=== PATIENT | female | born 1990 | race African-American/Black ===

== ENCOUNTER 2016-04-27 05:34 | Inpatient (IN) | payer OTHER ==
[~2016-04-27] VITALS: Ht 165.1 cm; Wt 72.6 kg
[2016-04-27] VITALS (63 sets, daily range): BP systolic 95–146; BP diastolic 48–85; PULSE 76–163; RESP 18–20; TEMP 98.5–99.2
[2016-04-27] MEDS ORDERED: OXYTOCIN 30 UNITS-500ML PREMIX 500 ML ONE (05:49)
[2016-04-27] MEDS ORDERED: CALNTAB PO (05:59)
[2016-04-27] MEDS ORDERED: LIDOCAINE HCL 1% 50 ML VIAL INFIL PRN (06:00)
[2016-04-27] MEDS ORDERED: MINERAL OIL 10 ML VIAL TOP PRN (06:00)
[2016-04-27] MEDS ORDERED: OXYTOCIN 30 UNITS 500ML PREMIX IV ONE (06:00)
[2016-04-27] MEDS ORDERED: OXYTOCIN 30 UNITS/NS 500ML PREMIX IV SCH (06:00)
[2016-04-27] MEDS ORDERED: NS 500 ML BOLUS IV PRN (06:00)
[2016-04-27] MEDS ORDERED: LACTATED RINGER'S 1000 ML BOLUS IV PRN (06:00)
[2016-04-27] MEDS ORDERED: LACTATED RINGER'S 1000 ML IV SCH ×2 (06:00→21:45)
[2016-04-27] MEDS ORDERED: LIDOCAINE HCL 1% 50 ML VIAL I-DERMAL PRN (06:00)
[2016-04-27] MEDS ORDERED: ONDANSETRON HCL 4 MG/2 ML VIAL IV PRN (06:00)
[2016-04-27] MEDS ORDERED: NS 1000 ML IV PRN (06:00)
[2016-04-27] MEDS ORDERED: CITRIC ACID-SODIUM CITRATE LIQ 30 ML UDC PO SCH ×2 (06:00→21:45)
[2016-04-27 06:31] LABS: AUTOMATED NEUTROPHIL # 4.4 TH/MM3 (1.8-7.7); BASOPHIL % 0.3 % (0.0-2.0); EOSINOPHIL # 0.1 TH/MM3 (0-0.4); EOSINOPHIL % 1.5 % (0.0-4.0); LYMPH % 29.8 % (9.0-44.0); LYMPHOCYTE # 2.2 TH/MM3 (1.0-4.8); MEAN CELL VOLUME 75.8 FL (80.0-100.0); MEAN CORPUSCULAR HEMOGLOBIN 24.7 PG (27.0-34.0); MEAN CORPUSCULAR HGB CONC 32.6 % (32.0-36.0); NEUT % 61.4 % (16.0-70.0); PLATELET COUNT 200 TH/MM3 (150-450); RED BLOOD COUNT 4.36 MIL/MM3 (4.00-5.30); RED CELL DISTRIBUTION WIDTH 18.9 % (11.6-17.2); WHITE BLOOD COUNT 7.2 TH/MM3 (4.0-11.0)
[2016-04-27 06:33] LABS: HEMO FLAGS AUTO DIFF
[2016-04-27 06:53] LABS: BACTERIA, URINE RARE /hpf; BLOOD, URINE MOD (NEG); GLUCOSE,URINE NEG (NEG); HYALINE CAST, URINE 1 /lpf (RARE); KETONE, URINE NEG (NEG); NITRITE,URINE NEG (NEG); PH, URINE 6.5 (5.0-8.5); SQUAMOUS EPITHELIAL CELL URINE 2 /hpf (0-5); URINE COLOR LIGHT-YELLOW (YELLW/STRAW)
[2016-04-27 06:59] LABS: SCAN/DIFF AUTO DIFF CONFIRMED
[2016-04-27 07:13] LABS: COMMENT (UR) CULT NOT INDICATED; CULTURE IF INDICATED CULT NOT INDICATED
[2016-04-27] MEDS ORDERED: fentaNYL 2MCG-BUPIV 0.125% INJ 100 ML ONE ×2 (12:52→19:35)
[2016-04-27] MEDS ORDERED: ePHEDrine/NS 25 MG/5 ML SYR ONE (12:53)
--- NOTE | 2016-04-27 20:40 | PD.LABORPN ---
Subjective Subjective Pt comfortable with epidural Objective Vital Signs Vital Signs Date Time Temp Pulse Resp B/P Pulse Ox O2 Delivery O2 Flow Rate FiO2 04/27/16 19:40 99 115/65 04/27/16 19:20 97 116/65 04/27/16 19:15 18 04/27/16 19:00 96 106/48 04/27/16 18:45 20 04/27/16 18:40 92 102/56 04/27/16 18:20 94 103/48 04/27/16 18:07 20 04/27/16 18:00 90 04/27/16 18:00 96/48 04/27/16 17:45 99.2 20 04/27/16 17:40 106 108/63 04/27/16 17:20 92 109/62 04/27/16 17:00 88 109/59 04/27/16 16:45 20 04/27/16 16:40 77 95/55 04/27/16 16:20 90 99/48 04/27/16 16:13 20 04/27/16 16:00 91 104/56 04/27/16 15:45 20 04/27/16 15:40 98 110/64 04/27/16 15:20 94 108/59 04/27/16 15:01 20 04/27/16 15:00 163 101/70 04/27/16 14:44 20 04/27/16 14:40 95 112/66 04/27/16 14:20 97 110/70 04/27/16 14:15 20 04/27/16 14:10 90 04/27/16 14:05 102 04/27/16 14:00 95 04/27/16 14:00 95 95/53 04/27/16 13:40 86 97/49 04/27/16 13:40 96 04/27/16 13:35 94 04/27/16 13:30 95 04/27/16 13:30 98.8 20 04/27/16 13:25 94 04/27/16 13:20 97 04/27/16 13:20 89 122/72 04/27/16 13:15 85 104/68 04/27/16 13:15 83 04/27/16 12:45 20 Objective Pelvic Exam: Cervix: Dilatation: 8 Effacement: 80 Station: 0 Presentation: [-] Membranens: ruptured clear fluid at 8 am Uterine Contractions: q 3 min at 50 mmhg FHT's: Category: 1 Baseline: 140's Reactive: yes Variability: [-] Decels: [-] Assessment/Plan Assessment and Plan 25 yo BF at 40 wks 2 dys for induction with arrest of labor at 8 cm since 2 pm...discussed diagnosis with pt and and rec for delivery by c/ s...all questions answered..services notified..will have to wait at least 1 hr due to emergent c/s just starting on labor and delivery. Aline Last MD Apr 27, 2016 20:40
[2016-04-27] MEDS ORDERED: ONDANSETRON HCL 4 MG/2 ML VIAL IV PUSH PRN (21:15)
[2016-04-27] MEDS ORDERED: KETOROLAC TROMETHAMINE 60 MG/2 ML (IM) VIAL IM PRN ×2 (21:15)
[2016-04-27] MEDS ORDERED: SIMETHICONE 80 MG CHEWABLE TAB PO PRN (21:15)
[2016-04-27] MEDS ORDERED: oxyCODONE/ACETAMINOPHEN 5 MG/325 MG TAB PO PRN (21:15)
[2016-04-27] MEDS ORDERED: SODIUM CHLORIDE 0.9% FLUSH 5 ML FLUSH IV PRN (21:15)
[2016-04-27] MEDS ORDERED: OXYTOCIN 30 UNITS-500ML PREMIX 500 ML IV ONE (21:15)
[2016-04-27] MEDS ORDERED: MORPHINE SULFATE PF 5 MG/10 ML VIAL ONE (21:37)
[2016-04-27] MEDS ORDERED: ONDANSETRON HCL 4 MG/2 ML VIAL ONE (21:37)
[2016-04-27] MEDS ORDERED: OXYTOCIN 10 UNIT/ML AMP ONE (21:37)
[2016-04-27] MEDS ORDERED: ceFAZolin 1,000 MG/NS 100 ML IV ONE ×2 (21:45)
[2016-04-27] MEDS ORDERED: LACTATED RINGER'S 1000 ML IV ONE (21:45)
[2016-04-28] VITALS: BP 130/77; PULSE 95; RESP 18
[2016-04-28] MEDS ORDERED: LACTATED RINGER'S 1000 ML INJ 1,000 ML IV SCH (02:09)
[2016-04-28 02:30] VITALS: BP 125/58; PULSE 108; RESP 20; TEMP 100.1
[2016-04-28 03:30] VITALS: TEMP 98
[2016-04-28 06:08] LABS: BASOPHIL % 0.3 % (0.0-2.0); HEMATOCRIT 28.2 % (35.0-46.0); LYMPH % 13.9 % (9.0-44.0); LYMPHOCYTE # 1.7 TH/MM3 (1.0-4.8); MEAN CELL VOLUME 76.2 FL (80.0-100.0); MEAN CORPUSCULAR HEMOGLOBIN 24.5 PG (27.0-34.0); MEAN CORPUSCULAR HGB CONC 32.2 % (32.0-36.0); MONO % 5.7 % (0.0-8.0); NEUT % 80.1 % (16.0-70.0); PLATELET COUNT 172 TH/MM3 (150-450); RED BLOOD COUNT 3.71 MIL/MM3 (4.00-5.30); RED CELL DISTRIBUTION WIDTH 18.7 % (11.6-17.2); WHITE BLOOD COUNT 12.5 TH/MM3 (4.0-11.0)
[2016-04-28 06:09] LABS: HEMO FLAGS AUTO DIFF
[2016-04-28] MEDS ORDERED: OXYTOCIN 30 UNITS-500ML PREMIX 500 ML IV PRN (07:15)
[2016-04-28 08:20] LABS: OVALOCYTES 1+ (NORMAL); SCAN/DIFF AUTO DIFF CONFIRMED; TEARDROP RBCS 1+ (NORMAL)
[2016-04-28 08:50] VITALS: BP 109/71; PULSE 109; RESP 16; TEMP 99.7
[2016-04-28] MEDS ORDERED: SODIUM CHLORIDE 0.9% FLUSH 5 ML FLUSH IV SCH (09:00)
--- NOTE | 2016-04-28 12:27 | HHI.OB ---
Subjective Post Operative Day: 1 Remarks Pt doing well, good pain control, tolerating po Objective Vitals/I&O Vital Signs Date Time Temp Pulse Resp B/P Pulse Ox O2 Delivery O2 Flow Rate FiO2 04/28/16 08:50 99.7 16 04/28/16 08:50 109 109/71 04/28/16 03:30 98.0 04/28/16 02:30 100.1 108 20 04/28/16 02:30 125/58 04/28/16 00:00 95 18 130/77 04/27/16 23:45 128/82 04/27/16 23:45 99 18 04/27/16 23:45 98.5 04/27/16 23:30 111 18 146/74 04/27/16 23:15 18 04/27/16 23:15 113 04/27/16 23:15 116/79 04/27/16 23:00 18 04/27/16 23:00 116 136/67 04/27/16 22:45 114 110/72 04/27/16 22:45 99.1 18 04/27/16 21:20 96 110/68 04/27/16 21:00 85 106/61 04/27/16 20:40 102 95/61 04/27/16 20:20 161 112/55 04/27/16 20:00 95 110/64 04/27/16 19:40 99 115/65 04/27/16 19:20 97 116/65 04/27/16 19:15 18 04/27/16 19:00 96 106/48 04/27/16 18:45 20 04/27/16 18:40 92 102/56 04/27/16 18:20 94 103/48 04/27/16 18:07 20 04/27/16 18:00 90 04/27/16 18:00 96/48 04/27/16 17:45 99.2 20 04/27/16 17:40 106 108/63 04/27/16 17:20 92 109/62 04/27/16 17:00 88 109/59 04/27/16 16:45 20 04/27/16 16:40 77 95/55 04/27/16 16:20 90 99/48 04/27/16 16:13 20 04/27/16 16:00 91 104/56 04/27/16 15:45 20 04/27/16 15:40 98 110/64 04/27/16 15:20 94 108/59 04/27/16 15:01 20 04/27/16 15:00 163 101/70 04/27/16 14:44 20 04/27/16 14:40 95 112/66 04/27/16 14:20 97 110/70 04/27/16 14:15 20 04/27/16 14:10 90 04/27/16 14:05 102 04/27/16 14:00 95 04/27/16 14:00 95 95/53 04/27/16 13:40 86 97/49 04/27/16 13:40 96 04/27/16 13:35 94 04/27/16 13:30 95 04/27/16 13:30 98.8 20 04/27/16 13:25 94 04/27/16 13:20 97 04/27/16 13:20 89 122/72 04/27/16 13:15 85 104/68 04/27/16 13:15 83 04/27/16 12:45 20 04/27/16 12:31 88 137/81 Result Diagram: 04/28/16 0439 Objective Remarks GENERAL: Well-nourished, well-developed patient. CARDIOVASCULAR: Regular rate and rhythm without murmurs, gallops, or rubs. RESPIRATORY: Breath sounds equal bilaterally. No accessory muscle use. ABDOMEN/GI: Abdomen soft, non-tender, bowel sounds present. Incision: Clean, dry and intact. Fundus: Firm, non-tender at umbilicus. GENITOURINARY: Light to moderate bleeding. EXTREMITIES: No cyanosis or edema, non-tender, without signs of DVT. Medications and IVs Current Medications Medications (Trade) Dose Ordered Sig/Rj Route Start Time Stop Time Status Last Admin Oxytocin 500 ml @ 0 mls/hr TITRATE IV 04/27/16 06:00 Lactated Ringer's 1,000 ml @ 125 mls/hr Q8H IV 04/27/16 06:00 Lactated Ringer's 1,000 ml @ 3,000 mls/hr BOLUS PRN IV 04/27/16 06:00 Sodium Chloride 500 ml @ 1,000 mls/hr BOLUS PRN IV 04/27/16 06:00 (NS 1000 ml Inj) 1,000 ml @ 100 mls/hr Q10H PRN IV 04/27/16 06:00 (Zofran Inj) 4 mg Q6H PRN IV 04/27/16 06:00 (fentaNYL INJ) 50 mcg Q1H PRN IV PUSH 04/27/16 06:00 (fentaNYL INJ) 100 mcg Q1H PRN IV PUSH 04/27/16 06:00 Mineral Oil 10 ml 10 ml UNSCH PRN TOP 04/27/16 06:00 (Lr 1000 ml Inj) 1,000 ml @ 100 mls/hr Q10H IV 04/28/16 02:09 04/28/16 22:08 (NS Flush) 2 ml BID IV 04/28/16 09:00 (NS Flush) 2 ml UNSCH PRN IV 04/27/16 21:15 (Mylicon Chew) 80 mg QID PRN PO 04/27/16 21:15 (Motrin) 600 mg Q6H PRN PO 04/27/16 21:15 (Toradol Inj) 30 mg Q6H PRN IM 04/27/16 21:15 04/28/16 21:14 (Percocet 5-325 Mg) 1 tab Q4H PRN PO 04/27/16 21:15 Oxycodone/ Acetaminophen 2 tab 2 tab Q4H PRN PO 04/27/16 21:15 (Ancef Inj/NS Inj) 100 ml @ 200 mls/hr Q8H IV 04/28/16 06:00 04/28/16 14:29 04/28/16 07:36 (M-M-R Ii Inj) 0.5 ml ONCE ONCE SQ 04/28/16 16:00 04/28/16 16:01 (Boostrix Inj) 0.5 ml ONCE ONCE IM 04/28/16 16:00 04/28/16 16:01 Ondansetron HCl 4 mg 4 mg Q6H PRN IV PUSH 04/27/16 21:15 (Lr 1000 ml Inj) 1,000 ml @ 150 mls/hr Q6H40M IV 04/27/16 21:45 Assessment/Plan Assessment and Plan POD #1 s/p primary c/s doing well 1. routine post op care Discharge Planning plan for discharge 1-2 Aline Moeller MD 9, 2017 12:27
[2016-04-28] MEDS: IBUPROFEN 600 MG TAB PO PRN (14:02)
[2016-04-28 15:26] VITALS: TEMP 100.5
[2016-04-28] MEDS ORDERED: DIPHTH/TETANUS/ACEL PERTUSSIS (BOOSTER) 0.5 ML VIAL/PFS IM ONE (16:00)
[2016-04-28] MEDS ORDERED: MEASLES, MUMPS, RUBELLA VACCINE 0.5 ML VIAL SQ ONE (16:00)
[2016-04-28 20:00] VITALS: BP 110/77; PULSE 100; RESP 16; TEMP 97.9
[2016-04-29 08:07] VITALS: BP 116/56; PULSE 108; RESP 16; TEMP 98.6
[2016-04-29] MEDS ORDERED: OXYC1TAB63 PO (08:11)
--- NOTE | 2016-04-29 08:13 | HHI.DCPOC ---
Discharge Care Plan Your Health Problems Are: delivery Report Symptoms to Your Doctor -Temperate above 100.5 degrees -Redness, of incision or excessive or foul smelling drainage -Unusual pain or calf pain -Increased vaginal bleeding -Painful or difficulty urinating -Feelings of extreme sadness or anxiety after 2 weeks Goals to Promote Your Health * To prevent worsening of your condition and complications * To maintain your health at the optimal level Directions to Meet Your Goals Take your medications as prescribed Follow your dietary instruction Follow activity as directed Ensure plenty of rest for recovery Drink fluids for hydration Keep your appointments as scheduled Take your immunizations and boosters as scheduled If your symptoms worsen call your PCP, if no PCP go to Urgent Care Center or Emergency Room Smoking is Dangerous to Your Health. Avoid second hand smoke Call the 24-hour crisis hotline for domestic abuse at Aline Last MD Apr 29, 2016 08:13
--- NOTE | 2016-04-29 08:17 | PD.CIRC ---
Circumcision Procedure Note Procedure Date: Apr 29, 2016 Procedure Time: 08:00 Procedure: circ done with mogan without complication Pre-procedure diagnosis: circumcision Post-procedure diagnosis: circumcision Informed Consent: The risks, benefits, indications, potential complications, and alternatives were explained to the patient/family and informed consent obtained. The baby was brought to the procedure room where a time-out was done to ID the patient and the procedure. Performing Physician: Aline Mitchell Anesthesia used: Emla cream Device used: Mogen Description: The baby was prepped and draped in a sterile fashion. The procedure followed standard technique. The baby tolerated the procedure well without complication. Specimen: Aline Arvizu MD Apr 29, 2016 08:17
[2016-04-29] MEDS: oxyCODONE/ACETAMINOPHEN 5 MG/325 MG TAB PO PRN ×2 (08:51→13:28)
[2016-04-29] MEDS: IBUPROFEN 600 MG TAB PO PRN (08:51)
--- NOTE | 2016-05-01 06:00 | MP ---
cc: KANDY CHANG M.D. DATE OF SURGERY: 04/27/2016 PREOPERATIVE DIAGNOSIS: Intrauterine at 40 weeks, two days gestation, with arrest of active phase of labor at 8 cm. POSTOPERATIVE DIAGNOSIS: Intrauterine at 40 weeks, two days gestation, with arrest of active phase of labor at 8 cm. PROCEDURE PERFORMED: Primary low transverse section. OPERATING SURGEON Dr. Kandy Chang. ANESTHESIA: Epidural. FINDINGS AT SURGERY: Included a viable male infant, 9 pounds 14 ounces without Apgars 8 and 9. Normal-appearing tubes and ovaries bilaterally. Prominent sacrum noted on exam. BLOOD LOSS: 800 cc COMPLICATIONS: None. PROCEDURE IN DETAIL After proper consents were obtained, the patient was taken to the operating room where an adequate level of epidural anesthesia was achieved, Poon catheter had already been placed. She was sterilely prepped and draped. Using a sharp knife, a Pfannenstiel skin incision was made. This was carried down to the fascia using the Bovie cautery. Fascia was nicked in the midline, extended superior laterally on each side. There was blunt dissection of the muscles off of the fascia. Peritoneum was identified, entered sharply with Metzenbaum scissors. This incision was extended superiorly and inferiorly paying close attention to the bladder. Bladder blade was placed. Bladder flap was developed, bladder blade was replaced. I made a transverse incision in the lower uterine segment. This was extended using the finger fraction technique. Controlled delivery of the vertex, with bulb suction to the oropharynx and nares, controlled delivery of the body followed. The cord was clamped x2, cut in between and was handed to team in attendance. A viable male 9 pounds 14 ounces without Apgars 8 and 9. At this time cord blood sample was obtained. The placenta was removed. The uterus was exteriorized, wiped clean of clots and debris. The uterine incision was closed with a #1 chromic suture starting at each apex meeting in the midline in a running fashion. Irrigation was performed of the abdominopelvic cavity. Hemostasis was assured. We placed the uterus back into the cavity. We did have some oozing on the serosal surface of the left side of the uterus which we cauterized and then put some Razia on for good hemostasis. We then closed the muscle bellies using the #1 chromic suture x1. We closed the fascia using 0 Vicryl starting at each apex meeting in midline in a running fashion. Irrigation was performed of the subcu. Hemostasis achieved with Bovie cautery and the skin was closed with morgan. All sponge, lap and needle count were correct x3. MD CHRIS Segovia/LIZETT /8:15 AM /4:49 AM
== END 2016-04-29 16:16 | disposition home or self-care (01) | DRG 766 ==
LOC: H2EB 05:34 → H1EA 04-28 00:12
PROVIDERS: ADMIT Obstetrics & Gynecology; ATTEND Obstetrics & Gynecology
PROC: 10D00Z1 Extraction of Products of Conception, Low, Open Approach (ICD-10-PCS; principal; 2016-04-27)
PROC: 3E033VJ Introduction of Other Hormone into Peripheral Vein, Percutaneous Approach (ICD-10-PCS; 2016-04-27)
PROC: 3E0S3CZ (ICD-10-PCS; 2016-04-27)
PROC: 00HU33Z Insertion of Infusion Device into Spinal Canal, Percutaneous Approach (ICD-10-PCS; 2016-04-27)
DX: O62.1 Secondary uterine inertia (principal); O75.89 Other specified complications of labor and delivery; Z37.0 Single live birth; Z3A.40 40 weeks gestation of pregnancy
CPT/HCPCS: 81001; 85025; 86900; 86901; 90715; J0690; J1885; J2274; J2405; J2590